=== PATIENT | female | born 1955 | race Caucasian/White ===

== ENCOUNTER 2017-09-15 14:31 | Observation (INO) | payer OTHER ==
[~2017-09-15] VITALS: Ht 167.6 cm; Wt 66.8 kg
[2017-09-15 16:37] LABS: BASOPHIL (%) 0.3 % (0-1); EOSINOPHIL (%) 0.5 % (0-5); EOSINOPHIL COUNT 0.1 K/uL (0-0.3); IMMATURE GRANULOCYTE (%) 0.4 % (0.0-0.7); LYMPHOCYTE (%) 17.5 % (15-42); LYMPHOCYTE COUNT 2.4 K/uL (1.0-2.8); MCHC 33.3 G/DL (30.0-36.0); MCV 93.1 FL (83-99); MONOCYTE (%) 5.7 % (3-12); MONOCYTE COUNT 0.8 K/uL (0-0.8); NEUTROPHIL (%) 75.6 % (45-76); NEUTROPHIL COUNT 10.3 K/uL (1.8-6.4); PLATELET COUNT 204 K/uL (156-360); RBC DIS.WIDTH-CV 13.1 % (11.8-14.6); RBC DIS.WIDTH-SD 44.5 % (39-53); RED BLOOD COUNT 4.19 M/uL (3.80-5.20); WHITE BLOOD COUNT 13.6 K/uL (4.1-10.2)
[2017-09-15 16:45] LABS: CHLORIDE 108 mEq/L (99-109); POTASSIUM 4.2 mEq/L (3.7-5.4); SODIUM 143 mEq/L (136-147)
[2017-09-15 16:47] LABS: GLUCOSE 122 mg/dL (70-99)
[2017-09-15 16:48] LABS: PTT 24.7 SEC (25-37)
[2017-09-15 16:51] LABS: CREATININE 0.8 mg/dL (0.6-1.3); GFR ESTIMATE (CALCULATED) > 59 mL/min/
[2017-09-15 16:52] LABS: UREA NITROGEN (BUN) 18 mg/dL (9-23)
[2017-09-15 16:59] LABS: TROP-I INTERPRETATION INDETERMINATE; TROPONIN-I 0.46 ng/mL (0.0-0.30)
[2017-09-15] MEDS ORDERED: LEXAPRO5 MG PO (17:15)
[2017-09-15] MEDS ORDERED: AMBIEN5 MG PO (17:15)
[2017-09-15] MEDS ORDERED: LITE COAT ASPI325 M1 PO (17:16)
[2017-09-15 19:57] LABS: SERUM ETHYL ALCOHOL < 10 mg/dL
[2017-09-15 20:08] LABS: APPEARANCE CLEAR ((CLEAR)); BILIRUBIN NEGATIVE; BLOOD NEGATIVE; COLOR STRAW ((YELLOW)); GLUCOSE (STRIP) NEGATIVE; KETONES NEGATIVE; LEUKOCYTES NEGATIVE; NITRITE NEGATIVE; PROTEIN (STRIP) NEGATIVE; SPECIFIC GRAVITY 1.011 (1.000-1.030); UCUL ADDED? NO; UROBILINOGEN 0.2 MG/DL (0.2-1.0)
[2017-09-15 20:51] VITALS: BP 118/59
[2017-09-15 21:26] LABS: BENZODIAZEPINES, URINE SCREEN Negative (200 ng/mL)
[2017-09-16 00:29] VITALS: BP 106/56
[2017-09-16 00:41] LABS: TROP-I INTERPRETATION INDETERMINATE; TROPONIN-I 0.43 ng/mL (0.0-0.30)
[2017-09-16 05:01] VITALS: BP 91/51
[2017-09-16 07:50] VITALS: BP 119/57
[2017-09-16 07:57] LABS: HDL CHOLESTEROL 55 MG/DL (Desirable>=50); LDL CHOLESTEROL 138 mg/dL (Desirable<100); NON-HDL CHOLESTEROL 160 mg/dL (Desirable<160); TOTAL CHOLESTEROL 215 mg/dL (Desirable<200); TRIGLYCERIDES 111 MG/DL (Normal: <150)
[2017-09-16 08:07] LABS: TROP-I INTERPRETATION INDETERMINATE; TROPONIN-I 0.33 ng/mL (0.0-0.30)
[2017-09-16 09:40] LABS: HEMATOCRIT 37.8 % (36.0-46.0); HEMOGLOBIN 12.3 G/DL (11.9-15.5); MCH 30.7 PG (29.0-34.0); MCHC 32.5 G/DL (30.0-36.0); MCV 94.3 FL (83-99); NRBC (%) 0.3 /100 WBC (0-0); PLATELET COUNT 210 K/uL (156-360); RBC DIS.WIDTH-CV 13.2 % (11.8-14.6); RBC DIS.WIDTH-SD 45.6 % (39-53); RED BLOOD COUNT 4.01 M/uL (3.80-5.20)
[2017-09-16] MEDS ORDERED: LOPRESSOR25 MG PO (09:53)
[2017-09-16] MEDS ORDERED: ASPIRIN81 M2 PO ×2 (09:53→13:54)
[2017-09-16] MEDS ORDERED: LIPITOR40 MG PO ×2 (09:53→13:54)
[2017-09-16 10:53] LABS: CHLORIDE 110 MEQ/L (99-109); CREATININE 0.8 MG/DL (0.6-1.3); GFR ESTIMATE (CALCULATED) > 59 mL/min/; GLUCOSE 98 mg/dL (70-99); SODIUM 145 MEQ/L (136-147); UREA NITROGEN (BUN) 14 mg/dL (9-23)
[2017-09-16 10:54] LABS: POTASSIUM 5.1 MEQ/L (3.7-5.4)
[2017-09-16 11:35] LABS: THYROTROPIN (TSH) 1.4 MIU/L (0.4-5.5)
[2017-09-16 12:00] VITALS: BP 116/63
[2017-09-16] MEDS ORDERED: LOPRESSOR50 MG PO ×2 (12:08→13:54)
== END 2017-09-16 14:30 | disposition home or self-care (01) ==
LOC: EME 14:31 → EDOF 19:11 → ENRESERV 19:13 → 4SOUTH 20:22
PROVIDERS: Emergency Medicine; Internal Medicine; Physician Assistant Medical
DX: R07.9 Chest pain, unspecified (principal); I47.1 Supraventricular tachycardia; F32.9 Major depressive disorder, single episode, unspecified; G47.00 Insomnia, unspecified; Z86.19 Personal history of other infectious and parasitic diseases; Z82.49 Family history of ischemic heart disease and other diseases of the circulatory system; Z88.0 Allergy status to penicillin; D72.829 Elevated white blood cell count, unspecified
CPT/HCPCS: 71045; 80048; 80061; 80306 90; 81003; 84443; 84484; 85025; 85027; 85610; 85730; 93005; 99281; 99285; G0378; G0480; J1650